=== PATIENT | male | born 1975 | race Caucasian/White ===

== ENCOUNTER → 2021-02-26 10:35 | Outpatient (BNVA) | payer BC, SELFPAY | PROVIDERS: PCP Family Medicine Adult Medicine; Visit Provider Family Medicine Adult Medicine | DX: Z00.00 Encounter for general adult medical examination without abnormal findings (principal) | CPT/HCPCS: 80053; 83036; 85025; G0103 ==

== ENCOUNTER → 2021-04-18 16:53 | Outpatient (BNVA) | payer BC, SELFPAY | PROVIDERS: PCP Family Medicine Adult Medicine; Visit Provider Surgery | DX: Z01.812 Encounter for preprocedural laboratory examination (principal); Z20.822 Contact with and (suspected) exposure to COVID-19 | CPT/HCPCS: 87635 ==

== ENCOUNTER 2021-04-25 06:46 | Day surgery (SDC) | payer BC, SELFPAY ==
[2021-04-23 09:52] VITALS: BMI 25.8
--- NOTE | 2021-04-25 06:59 | P.HP_ITS ---
Same Day Surgery H&P Indication for Procedure/HPI DATE OF PROCEDURE: April 25, 2021 CHIEF COMPLAINT/INDICATIONFOR SURGICAL PROCEDURE: Screening colonoscopy PREOP DIAGNOSIS: Screening colonoscopy PLANNED PROCEDRUE: Operation Date: 04/25/21 08:00 Proposed Procedures p Colonoscopy 78436 Z12.11(Not Applicable) - Eulalio Aldana MD 03/05/2021 This is a pleasant 45 years old gentleman presents to my practice with referral for screening colonoscopy. Patient never had one before, he denies any history of colon cancer or bleeding per rectum or change in bowel habits. Interim history 04/25/2021 Patient comes today for screening colonoscopy ROS All systems have been reviewed negative except as per the above or per problem list Medications/Allergies* Home Medications Medication Instructions Recorded Confirmed Type No Known Home Medications 02/26/21 04/23/21 History Allergies/Adverse Reactions Allergy/AdvReac Type Severity Reaction Status Date / Time No Known Allergies Allergy Verified 04/25/21 07:25 Pertinent History/Comorbid Conditions* Medical History (Updated 03/06/21 @ 06:28 by Eulalio Aldana MD) Broken arm Encounter for wellness examination in adult Sacroiliac inflammation Family History (Updated 12/28/20 @ 11:08 by Lidia Coreas) Father Cancer Father, Onset Age: 69 Lung cancer that went Brain Social History Alcohol intake: current Alcohol intake frequency: holidays/special occasions only Adopted: No Caregiver/support person: No Lives independently: Yes Household members: spouse and children Housing: House Marital status: Number of children: 4 Highest education level completed: Master's Degree service: No Current occupational status: employed Current occupation: [employer] Sexually active: Yes Current gender identity: Male Pertinent Exam Findings alert, oriented x 3, regular rate & rhythm and procedure specific exam findings (Abdominal examination nontender nondistended soft) Recommendations Surgery/Procedure today (Screening colonoscopy) Other Plans: Plan of care; After thorough history and physical examination and reviewing the chart, plan to perform screening colonoscopy. I discussed with the patient in details the risks,benefits,alternatives and indications.The risk of aspiration, bleeding, soft tissue injury, perforation of the colon and other potential concomitant complications were explained to the patient in details,also the potential need for Laproscoy/Laparotomy to repair any related complications including but not limited to colectomy and or Closotomy.The patient understood this well and did agree to proceed. Rationale was carefully and clearly discussed with the patient.Appropriate informed consent have been reviewed and signed All questions have been answered and all concerns have been addressed to patient's satisfaction. Verbal and written Instructions were given to the patient for colonoscopy prep Coding Level of Care Code Acute Decision Analyst for Mauri Newton
[2021-04-25 07:10] VITALS: BP 137/95; PULSE 92; RESP 16; TEMP 36.8; O2SAT 96
--- NOTE | 2021-04-25 07:13 | ANES.PREANE2 ---
Pre-Anesthetic Assessment Pre-Anesthetic Assessment: Height/Weight: Height 1.78 m Weight 81.647 kg Preop Diagnosis: Screening colonoscopy Proposed Procedure: Operation Date: 04/25/21 08:00 Proposed Procedures p Colonoscopy 06312 Z12.11(Not Applicable) - Eulalio Aldana MD Was Beta Franklin taken within 24 hours: N/A Was Clonidine taken within 24 hours: N/A Social: Social History: No alcohol and No tobacco Exam: Pre-Anes Outpt Exam: alert, oriented x 3, clear to auscultation bilaterally and regular rate & rhythm Airway: Submandibular: WNL Cervical ROM: WNL MP: 2 Dentition: Full History/ROS: No significant history except as noted Anesthetic Plan: ASA status: 1 Anesthesia: MAC Risk of > 500 ml blood loss (7ml/kg in children): No PFSH Anesthesia PFSH: Medical History Broken arm Encounter for wellness examination in adult Sacroiliac inflammation Family History Father Cancer, Onset Age: 69 Lung cancer that went Brain Social History Alcohol intake: current Alcohol intake frequency: holidays/special occasions only Adopted: No Caregiver/support person: No Lives independently: Yes Household members: spouse and children Housing: House Marital status: Number of children: 4 Highest education level completed: Master's Degree service: No Current occupational status: employed Current occupation: [employer] Sexually active: Yes Current gender identity: Male Data Anesthesia Cardiac Studies: No Data to Display
[2021-04-25] MEDS: sodium chloride 0.9% 1,000 ML 30 ML IV (07:21)
[2021-04-25 08:20] VITALS: BP 116/78; PULSE 79; RESP 16; TEMP 36.3; O2SAT 96
[2021-04-25 08:32] VITALS: BP 129/84; PULSE 81; RESP 18; O2SAT 99
--- NOTE | 2021-04-25 14:58 | ANE.PACU2 ---
Inpatient post-anesthesia follow up: Airway intact: Yes Vital signs: Temperature 97.4 F Pulse Rate 81 Respiratory Rate 18 Blood Pressure 129/84 Pulse Oximetry 99 Oxygen Delivery Me thod Room Air Oxygen Flow Rate Fraction of Inspir ed Oxygen Hydration adequate: Yes Nausea and vomiting: No Pain level: 1 Mental status: Baseline
== END 2021-04-25 08:40 | disposition home or self-care (01) ==
PROVIDERS: PCP Family Medicine Adult Medicine; Visit Provider Surgery
PROC: 0DJD8ZZ Inspection of Lower Intestinal Tract, Via Natural or Artificial Opening Endoscopic (ICD-10-PCS; CPT 45378; principal; 2021-04-25 08:00)
DX: Z12.11 Encounter for screening for malignant neoplasm of colon (principal); K63.5 Polyp of colon; K57.30 Diverticulosis of large intestine without perforation or abscess without bleeding
CPT/HCPCS: 45385; 88305; 96360; J2370; J2704; J7030

== ENCOUNTER → 2022-02-26 11:38 | Outpatient (BNVA) | payer BC, SELFPAY | PROVIDERS: PCP Family Medicine Adult Medicine; Visit Provider Family Medicine Adult Medicine | DX: Z00.00 Encounter for general adult medical examination without abnormal findings (principal); G56.02 Carpal tunnel syndrome, left upper limb; M46.1 Sacroiliitis, not elsewhere classified; K57.90 Diverticulosis of intestine, part unspecified, without perforation or abscess without bleeding; M67.442 Ganglion, left hand | CPT/HCPCS: 80053; 80061; 85025; 85651 ==

== ENCOUNTER → 2022-09-25 08:48 | Outpatient (BNVA) | payer BC, SELFPAY | PROVIDERS: PCP Family Medicine Adult Medicine; Visit Provider Family Medicine Adult Medicine | DX: Z00.00 Encounter for general adult medical examination without abnormal findings (principal); R10.9 Unspecified abdominal pain; K57.90 Diverticulosis of intestine, part unspecified, without perforation or abscess without bleeding; K63.5 Polyp of colon | CPT/HCPCS: 80053; 84443; 85025; G0103 ==

== ENCOUNTER 2022-10-08 06:37 | Outpatient (CLI) | payer BC, SELFPAY ==
--- NOTE | 2022-10-08 07:00 | US_ITS ---
WS: [id number] RIGHT UPPER QUADRANT ULTRASOUND HISTORY: Abdomen pain COMPARISON: None available. Liver: 15.0 cm in length. Mild hepatic steatosis. No mass. Normal size. Portal Vein: Normal hepatopetal flow with monophasic waveform. Gallbladder: Normally distended gallbladder with no stones or wall thickening. CBD: 0.3 cm Pancreas: Normal size and echogenicity. Right kidney: 11.0 cm in length. Normal size and echogenicity. No hydronephrosis or mass. Aorta and IVC: Unremarkable abdominal aorta and IVC. No ascites. US/US gall bladder 13563 IMPRESSION: 1. Very mild coarse echotexture within the liver is probably hepatic steatosis . 2. Otherwise normal RIGHT upper quadrant ultrasound.
== END 2022-10-08 06:38 | disposition home or self-care (01) ==
PROVIDERS: PCP Family Medicine Adult Medicine; Visit Provider Family Medicine Adult Medicine
DX: R10.9 Unspecified abdominal pain (principal)
CPT/HCPCS: 76705

== ENCOUNTER 2022-12-16 19:28 | Emergency (ER) | payer BC, SELFPAY ==
[2022-12-16 19:41] VITALS: BP 164/92; PULSE 88; RESP 16; TEMP 36.4; O2SAT 99; BMI 28.7
--- NOTE | 2022-12-16 19:52 | CTR_ITS ---
PROCEDURE INFORMATION: Exam: CT Head Without Contrast Exam date and time: 12/16/2022 8:03 PM Age: 47 years old Clinical indication: Stroke-like symptoms; Dizziness/giddiness and vomiting; Additional info: Symptoms of acute stroke TECHNIQUE: Imaging protocol: Computed tomography of the head without contrast. Radiation optimization: All CT scans at this facility use at least one of these dose optimization techniques: automated exposure control; mA and/or kV adjustment per patient size (includes targeted exams where dose is matched to clinical indication); or iterative reconstruction. Other technique: STROKE PROTOCOL was implemented. REPORTING DATA: Count of CT and Cardiac NM exams in prior 12 months: This patient has received 0 known CTs and 0 known cardiac nuclear medicine studies in the 12 months prior to the current study. COMPARISON: No relevant prior studies available. RADIATION DOSE METRICS: Total DLP (mGy-cm): 1143.9 FINDINGS: Brain: No acute infarct. No hemorrhage. Unremarkable white matter for age. No mass effect. Cerebral ventricles: No ventriculomegaly. Paranasal sinuses: No significant inflammation. No fluid levels. Mastoid air cells: Visualized mastoid air cells are well aerated. Bones/joints: Unremarkable. No acute fracture. Soft tissues: Unremarkable. CT/CT head thrombolytic [id number] IMPRESSION: No acute intracranial abnormality. ASSESSMENT: ASPECTS ([place] Stroke Program Early CT Score) is 10.
--- NOTE | 2022-12-16 19:52 | XRR_ITS ---
PROCEDURE INFORMATION: Exam: XR Chest Exam date and time: 12/16/2022 8:00 PM Age: 47 years old Clinical indication: Other: Dizzy TECHNIQUE: Imaging protocol: Radiologic exam of the chest. Views: 1 view. COMPARISON: No relevant prior studies available. FINDINGS: Lungs: Unremarkable. No consolidation. Pleural spaces: Unremarkable. No pleural effusion. No pneumothorax. Heart/Mediastinum: Unremarkable. No cardiomegaly. Bones/joints: Unremarkable. XR/XR chest 1V portable [id number] IMPRESSION: No acute findings.
[2022-12-16 20:03] LABS: Basophils # 0.1 10^3/uL (0.0-0.1); Basophils % 0.8 %; Eosinophils # 0.4 10^3/uL (0.0-0.8); Eosinophils % 3.5 %; Hematocrit 43.4 % (42.0-52.0); Hemoglobin 14.8 g/dL (11.7-16.6); Lymphocytes # 5.5 10^3/uL (0.8-4.8); Lymphocytes % 46.2 %; Mean Corpuscular HGB Conc 34.1 g/dL (30.0-36.0); Mean Corpuscular Hemoglobin 31.2 pg (28.0-34.0); Mean Corpuscular Volume 91.6 fl (80-94); Mean Platelet Volume 9.6 fL (7.4-10.4); Monocytes # 0.8 10^3/uL (0.2-0.9); Monocytes % 6.4 %; Neutrophils # 5.04 10^3/uL (1.8-7.7); Neutrophils % 42.6 %; Nucleated Red Blood Cells % 0 %; Platelet Count 389 10^3/cmm (130-400); Red Blood Count 4.74 10^6/uL (4.1-5.3); Red Cell Distribution Width 11.7 % (12.1-15.1); White Blood Count 11.9 10^3/uL (4.0-10.0)
[2022-12-16 20:04] LABS: Glucose Point of Care 155 mg/dL (70-110)
[2022-12-16] MEDS: ondansetron 2 mg/ML SDV 2 mL 4 MG IVP (20:13)
[2022-12-16 20:14] LABS: INR 1.02 (0.8-1.2)
[2022-12-16 20:15] LABS: Partial Thromboplastin Time 22.9 SECONDS (23.9-36.7)
--- NOTE | 2022-12-16 20:15 | ECG_ITS ---
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 Measurements Intervals [place] Rate: 66 P: 46 NV: 150 QRS: 44 QRSD: 93 T: 47 QT: 430 QTc: 453 Interpretive Statements SINUS RHYTHM POSSIBLE RIGHT VENTRICULAR CONDUCTION DELAY [RSR (QR) IN V1/V2] No previous ECG available for comparison Electronically Signed On 12-16-2022 20:59:10 CDT by Tiffany Bass M.D. [id number]
[2022-12-16] MEDS: sodium chloride 0.9% 1,000 ML 999 ML IV (20:16)
[2022-12-16] MEDS: meclizine 25 mg tablet 50 MG PO (20:16)
[2022-12-16 20:32] LABS: Alanine Aminotransferase 22 U/L (0-41); Albumin Level 4.3 g/dL (3.5-5.2); Alkaline Phosphatase 76 U/L (40-130); Anion Gap 17.4 (5-19); Aspartate Amino Transferase 18 U/L (0-40); Blood Urea Nitrogen 12 mg/dL (6-20); Calcium 8.7 mg/dL (8.5-10.5); Carbon Dioxide 22 mmol/L (22-29); Chloride 99 mmol/L (98-107); Globulin 3.2 g/dL (1.3-4.6); Glomerular Filtration Rate 80.1 mL/min (90-130); Glucose 162 mg/dL (65-115); Osmolality Calculated 283 mOsm/kg (285-295); Potassium 3.4 mmol/L (3.5-5.1); Sodium 135 mmol/L (136-145); Total Bilirubin 0.4 mg/dL (0.15-1.2); Total Protein 7.5 g/dL (6.6-8.7)
[2022-12-16 20:33] VITALS: BP 164/104; PULSE 79; RESP 16; O2SAT 100
[2022-12-16 20:34] LABS: Alcohol Level < 10 mg/dL (0-10)
--- NOTE | 2022-12-16 20:37 | CTR_ITS ---
PROCEDURE INFORMATION: Exam: CTA Head With Contrast, Arteriography Exam date and time: 12/16/2022 8:45 PM Age: 47 years old Clinical indication: Stroke-like symptoms; Dizziness/giddiness and vomiting; Additional info: Dizzy TECHNIQUE: Imaging protocol: Computed tomographic angiography of the head with contrast. Exam focused on the arteries. 3D rendering (Not supervised by radiologist): MIP and/or 3D reconstructed images were created by the technologist. Radiation optimization: All CT scans at this facility use at least one of these dose optimization techniques: automated exposure control; mA and/or kV adjustment per patient size (includes targeted exams where dose is matched to clinical indication); or iterative reconstruction. Contrast material: OMNI 350; Contrast volume: 100 ml; Contrast route: INTRAVENOUS (IV); REPORTING DATA: Count of CT and Cardiac NM exams in prior 12 months: This patient has received 0 known CTs and 0 known cardiac nuclear medicine studies in the 12 months prior to the current study. COMPARISON: CT head thrombolytic [id number] 12/16/2022 8:03 PM RADIATION DOSE METRICS: Total DLP (mGy-cm): 452.6 FINDINGS: ANTERIOR CIRCULATION: Right internal carotid artery: Intracranial segment is patent with no significant stenosis. No aneurysm. Right middle cerebral artery: No occlusion or significant stenosis. No aneurysm. Right anterior cerebral artery: No occlusion or significant stenosis. No aneurysm. Left internal carotid artery: Intracranial segment is patent with no significant stenosis. No aneurysm. Left middle cerebral artery: No occlusion or significant stenosis. No aneurysm. Left anterior cerebral artery: No occlusion or significant stenosis. No aneurysm. POSTERIOR CIRCULATION: Right vertebral artery: No occlusion or significant stenosis. No aneurysm. Left vertebral artery: No occlusion or significant stenosis. No aneurysm. Basilar artery: No occlusion or significant stenosis. No aneurysm. Right posterior cerebral artery: No occlusion or significant stenosis. No aneurysm. Left posterior cerebral artery: No occlusion or significant stenosis. No aneurysm. Brain: No definite mass, mass effect, or midline shift. Cerebral ventricles: No ventriculomegaly. Bones/joints: Unremarkable. No acute fracture. Soft tissues: Unremarkable. PROCEDURE INFORMATION: Exam: CTA Neck With Contrast Exam date and time: 12/16/2022 8:45 PM Age: 47 years old Clinical indication: Stroke-like symptoms; Dizziness/giddiness and vomiting; Additional info: Dizzy TECHNIQUE: Imaging protocol: Computed tomographic angiography of the neck with contrast. 3D rendering (Not supervised by radiologist): MIP and/or 3D reconstructed images were created by the technologist. Radiation optimization: All CT scans at this facility use at least one of these dose optimization techniques: automated exposure control; mA and/or kV adjustment per patient size (includes targeted exams where dose is matched to clinical indication); or iterative reconstruction. Contrast material: OMNI 350; Contrast volume: 100 ml; Contrast route: INTRAVENOUS (IV); REPORTING DATA: Count of CT and Cardiac NM exams in prior 12 months: This patient has received 0 known CTs and 0 known cardiac nuclear medicine studies in the 12 months prior to the current study. COMPARISON: CT head thrombolytic [id number] 12/16/2022 8:03 PM RADIATION DOSE METRICS: Total DLP (mGy-cm): 452.6 FINDINGS: Right common carotid artery: No stenosis. No dissection or occlusion. Right internal carotid artery: No stenosis of the extracranial segment. No dissection or occlusion. Right external carotid artery: No occlusion or stenosis of the origin. Left common carotid artery: No stenosis. No dissection or occlusion. Left internal carotid artery: No stenosis of the extracranial segment. No dissection or occlusion. Left external carotid artery: No occlusion or stenosis of the origin. Right vertebral artery: No stenosis. No dissection or occlusion. Left vertebral artery: No stenosis. No dissection or occlusion. Soft tissues: Normal. No significant soft tissue swelling. Bones/joints: No acute fracture. CT/CT angio headneck* [id number] IMPRESSION: No large vessel stenosis or occlusion. IMPRESSION: No stenosis or occlusion. REFERENCES: NASCET CRITERIA. The degree of stenosis in the cervical segment of the internal carotid artery is based on NASCET criteria. Normal is no stenosis. Mild is less than 50% stenosis. Moderate is 50-69% stenosis. Severe is 70% to 99% stenosis. Total occlusion is no detectable patent lumen.
--- NOTE | 2022-12-16 20:45 | PM.CONSULT ---
Providers/Reason For Consult Consulting Physician/Specialty*: Artem Hu MD Neurology and Epilepsy Reason for Consult*: Code stroke emergency room bed #13 Primary Care Provider: Al Tavarez MD History of Present Illness History of Present Illness Al Galarza is a 47 year old male who was at home with his . The patient had finished eating dinner around 7 AM on 12/16/2022 and was at his computer completing applications. Approximately 30 minutes prior to presenting to the [facility] emergency room, the patient stated that he turned his head to speak with his and when he turned his head back to look at his computer he experienced acute onset of severe objective vertigo where the patient stated everything was spinning around. The patient's gave him a banana to eat in case the patient was experiencing a low blood sugar and the patient experienced nausea and vomiting. According to the patient's the patient blood pressure was elevated with systolic blood in the mid to high 140s. The patient also stated that he was experiencing some numbness in the fingers of his right hand but the numbness in his fingers resolved. Code stroke was initiated at 7:52 PM on 12/16/2022. Noncontrast head CT was obtained and was reported to be negative. Patient was given Antivert and Zofran for nausea and vomiting. During the patient's neurological assessment the patient reported improvement in his nausea and denied vertigo while sitting on the stretcher with his head elevated. He did report some right temporal headache type pain. Vital signs reveal elevated blood pressure 157/104 with a heart rate of 67 O2 saturation 99% on room air. NIH score =0. I recommended that the patient undergo CT angiogram of his head and neck to rule out posterior circulation stenosis/thrombus. The patient's wanted the patient undergo cardiac enzymes although the patient denies chest pain at this time. The patient's concerned was related to the attending emergency room physician. Past medical history: Questionable gallstone in August 2022 Drug allergies: None Current Home Medications: None Habits: None Family history: Negative for strokes Review of Systems General: Reports: 10 or more systems reviewed and unremarkable except in HPI and below Medications/Allergies Home Medications Medication Instructions Recorded Confirmed Last Taken Type naproxen 500 mg tablet 500 mg PO BID PRN pain #60 tabs 02/26/22 09/25/22 Unknown Rx Allergies Allergy/AdvReac Type Severity Reaction Status Date / Time No Known Allergies Allergy Verified 12/16/22 19:41 Current Medications Generic Name Dose Route Start Last Admin Trade Name Freq PRN Reason Stop Dose Admin Sodium Chloride 1,000 mls @ 999 mls/hr 12/16/22 19:52 12/16/22 20:16 Sodium Chloride 0.9% IV 12/16/22 20:52 999 mls/hr .Q1H1M ONE Administration PFSH Acute PFSH: Medical History (Updated 12/16/22 @ 21:05 by Artem Hu MD) Abdominal pain in male Broken arm Carpal tunnel syndrome of left wrist Encounter for wellness examination in adult Ganglion cyst of tendon sheath of left hand Sacroiliac inflammation Family History Father Cancer, Onset Age: 69 Lung cancer that went Brain Social History (Updated 02/26/22 @ 11:03 by Nicole Farnsworth LPN) Smoking and tobacco status: never smoked Alcohol intake: current Alcohol intake frequency: holidays/special occasions only Substance/Drug Use: never Adopted: No Caregiver/support person: No Lives independently: Yes Household members: spouse and children Housing: House Marital status: Number of children: 4 Highest education level completed: Master's Degree service: No Current occupational status: employed Current occupation: [employer] Sexually active: Yes Current gender identity: Male Vitals/I&O/Wt Last Vital Signs Temp 97.6 F 12/16/22 19:41 Pulse 79 12/16/22 20:33 Resp 16 12/16/22 20:33 BP 164/104 12/16/22 20:33 Pulse Ox 100 12/16/22 20:33 O2 Del Method Room Air 12/16/22 19:41 Weight last 48 hrs Weight 200 lb Physical Exam Narrative: NIH score = 0 Blood pressure 157/104 heart rate 67 O2 saturation 99% on room air The patient is alert and oriented x3. Speech fluent. There was no dysarthria head normocephalic. Neck supple. Cranial nerves II through XII intact. Pupils 4 mm. Pupils equal round and reactive to light and accommodation. Extraocular movements intact. There was brief episodes of horizontal nystagmus on left lateral gaze which extinguish with repeat assessment of extraocular movements. Visual keyes full via confrontation. Motor testing with the patient on the gurney was 5/5 bilaterally. There was no drift. [id number] was within normal limits without signs of ataxia. Rapid alternating movements of the upper extremities was within normal limits. [id number] maneuver revealed no ataxia. Deep tendon reflexes symmetrical, plantar responses flexor bilaterally. There was no clonus. Sensory examination was intact to touch, pinprick. There was no extinction on double sensory stimulation. Patient answers both questions correctly and follow commands. Throat clear. Lungs clear heart regular rhythm and rate extremities were negative for clubbing or cyanosis or edema. Data 12/16/22 19:56 12/16/22 19:56 A&P Assessment and plan (1) Acute posterior circulation transient ischemic attack: Assessment: 1. 47-year-old male who presented to [facility] emergency department after experiencing acute onset of objective vertigo associated with elevated blood pressure and nausea and vomiting while sitting at his computer, assess for posterior circulation TIA Note: NIH score =0 Plan: 1. Recommend CT angiogram of the head and neck to assess for posterior circulation stenosis and thrombus 2. Agree with current treatment for nausea and vomiting 3. If CT angiogram is unrevealing, recommend admit to observation 4. Recommend starting aspirin 325 mg p.o. every morning with food first dose tonight 5. Recommend starting lipid lowering agent per stroke protocol 6. Recommend obtaining head MRI in a.m. to further assess for posterior circulation stroke (2) Objective vertigo: (3) Elevated blood pressure reading: Consult Attestations Medical Necessity Statement: The patient was evaluated by neurology and emergency department room 13 to assess for posterior circulation stroke Coding Level of Care Code 87688 Diagnoses Acute posterior circulation transient ischemic attack G45.8 Objective vertigo R42 Elevated blood pressure reading R03.0 Time Spent (min) 30
[2022-12-16] MEDS: iohexol 350 mg/mL 500 mL Btl (per mL) IV (20:53)
--- NOTE | 2022-12-16 21:01 | ECG_ITS ---
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 Measurements Intervals [place] Rate: 84 P: 57 [place]: 148 QRS: 46 QRSD: 99 T: 48 QT: 372 QTc: 441 Interpretive Statements SINUS RHYTHM NONSPECIFIC T-WAVE ABNORMALITY Compared to ECG 12/16/2022 20:15:06 T-wave abnormality now present Electronically Signed On 12-16-2022 21:04:32 CDT by Tiffany Bass M.D. [id number]
[2022-12-16 21:18] LABS: Troponin(5th) Baseline 6 ng/L (0-15)
[2022-12-16] MEDS: aspirin 81 mg Chew Tablet 324 MG PO (21:38)
[2022-12-16 21:44] LABS: Add Urine Microscopic? NO; Charge for UA Resulting for Rev
[2022-12-16 21:48] LABS: Bilirubin Urine Neg (Negative); Blood Urine Neg (Negative); Glucose Urine UA Norm (Normal); Ketones Urine Negative (Negative); Leukocyte Esterase Urine Negative (Negative); Nitrate Urine Negative (Negative); Protein Urine Neg (Negative); Urine Appearance Clear (CLEAR); Urine Color Yellow (Yellow); Urobilinogen Urine Neg (Negative); pH Urine 5 (5-7)
[2022-12-16 21:55] LABS: Amphetamines Screen Urine Negative (Negative); Barbiturates Screen Urine Negative (Negative); Benzodiazepines Screen Urine Negative (Negative); Cocaine Screen Urine Negative (Negative); Opiate Screen Urine Negative (Negative); PCP Screen Urine Negative (Negative); THC Screen Urine Negative (Negative)
--- NOTE | 2022-12-16 21:59 | W.ED.NAVMDI ---
HPI - Nausea/Vomiting/Diarrhea General: Chief complaint: Nausea/Vomiting/Diarrhea Stated complaint: Possible Stroke Time Seen by Provider: 12/16/22 19:46 Source: patient Mode of arrival: ambulatory Limitations: no limitations History of Present Illness: 47-year-old male states that 30 minutes before arrival he started getting severe dizziness while sitting. He states that the room was spinning he got nauseous and vomited he states that upon standing the symptoms get much worse he had a hard time walking due to the dizziness. States now it is improved if he lays still but is worse if he moves his head quickly. No history of vertigo in the past. Denies any pain anywhere Associated nausea: Yes Associated symtoms: Reports nausea; Denies chest pain or headache(s) Review of Systems Const: Denies: fever(s), chills, body aches or change in appetite Eyes: Denies: blurry vision or eye discomfort ENMT: Denies: throat pain or dental pain Card: Denies: chest pain Resp: Denies: dyspnea GI: Reports: nausea and vomiting; Denies: abdominal pain or diarrhea Musc: Denies: neck pain or back pain Skin/Breast: Denies: rash Neuro: Reports: vertigo; Denies: headache(s) PFSH ED PFSH: Medical History (Updated 12/16/22 @ 21:59 by Chaya Crouch MD) Abdominal pain in male Broken arm Carpal tunnel syndrome of left wrist Encounter for wellness examination in adult Ganglion cyst of tendon sheath of left hand Sacroiliac inflammation Family History Father Cancer, Onset Age: 69 Lung cancer that went Brain Social History (Updated 02/26/22 @ 11:03 by Nicole Fanrsworth LPN) Smoking and tobacco status: never smoked Alcohol intake: current Alcohol intake frequency: holidays/special occasions only Substance/Drug Use: never Adopted: No Caregiver/support person: No Lives independently: Yes Household members: spouse and children Housing: House Marital status: Number of children: 4 Highest education level completed: Master's Degree service: No Current occupational status: employed Current occupation: [employer] Sexually active: Yes Current gender identity: Male Physical Exam Const: COMMON NORMALS: no acute distress, patient oriented x3, healthy appearing and alert ORIENTATION/CONSCIOUSNESS: Yes oriented to person and Yes oriented to place HENMT: COMMON NORMALS: normocephalic and atraumatic HEAD & SCALP: normocephalic and atraumatic Eye: COMMON NORMALS: Equal, round and reactive pupils present and EOMs intact bilaterally PUPIL: Yes Equal, round and reactive pupils present OTHER: No nystagmus at this time Neck/C-Spine: COMMON NORMALS: full ROM and supple Chest: COMMONS NORMALS: normal inspection of the chest and normal palpation of entire chest wall Resp: COMMON NORMALS: normal respiratory effort, No retractions, No use of accessory muscles and clear to auscultation bilaterally AUSCULTATION: clear to auscultation bilaterally Cardio: COMMON NORMALS: regular rate, regular rhythm and No murmurs present (Cardio) RATE: regular rate RHYTHM: regular rhythm GI: COMMON NORMALS: Normal to inspection, nondistended, normoactive bowel sounds present, Soft to palpation, non-tender and no masses PALPATION: Yes Soft to palpation Extremity: COMMON NORMALS: normal to inspection and full ROM Neuro: COMMON NORMALS: patient oriented x3, moves all extremities and no focal motor deficits SENSORIUM/ORIENTATION: Yes alert, Yes oriented to person and Yes oriented to place CRANIAL NERVES: Yes CN normal except as noted SPEECH: speech normal GAIT: Yes Normal gait present Psych: COMMON NORMALS: mental status grossly normal, Normal thought process present and cooperative THOUGHT PROCESS: Normal thought process present Skin: COMMON NORMALS: no rashes or lesions noted and no wounds GENERAL SKIN EXAM: no rashes or lesions noted Course Vital Signs: Vital signs: Vital Signs Temperature 97.6 F 12/16/22 19:41 Pulse Rate 79 12/16/22 20:33 Respiratory Rate 16 12/16/22 20:33 Blood Pressure 164/104 12/16/22 20:33 Pulse Oximetry 100 12/16/22 20:33 Oxygen Delivery Me thod Room Air 12/16/22 19:41 MDM - Nausea/Vomiting/Diarrhea Medical Decision Making Patient presents here with vertigo is likely peripheral in nature symptoms of complete resolved here after Antivert he is able to ambulate without any difficulty has had no dizziness CT head CTA is normal I did offer him admission he states he feels much improved and would like to go home we will prescribe him Antivert for home he is to follow-up with PCP and return if worsening. Medical Records I reviewed the patient's medical records. Lab Data I reviewed the patient's lab results. 12/16/22 19:56 12/16/22 19:56 Radiology Impressions Chest X-Ray 12/16/22 19:52 IMPRESSION: No acute findings. Head CT 12/16/22 19:52 IMPRESSION: No acute intracranial abnormality. ASSESSMENT: ASPECTS ([place] Stroke Program Early CT Score) is 10. Head/Neck CTA 12/16/22 20:37 IMPRESSION: No large vessel stenosis or occlusion. IMPRESSION: No stenosis or occlusion. REFERENCES: NASCET CRITERIA. The degree of stenosis in the cervical segment of the internal carotid artery is based on NASCET criteria. Normal is no stenosis. Mild is less than 50% stenosis. Moderate is 50-69% stenosis. Severe is 70% to 99% stenosis. Total occlusion is no detectable patent lumen. Laboratory Results WBC 11.9 10^3/uL (4.0-10.0) H 12/16/22 19:56 RBC 4.74 10^6/uL (4.1-5.3) 12/16/22 19:56 Hgb 14.8 g/dL (11.7-16.6) 12/16/22 19:56 Hct 43.4 % (42.0-52.0) 12/16/22 19:56 MCV 91.6 fl (80-94) 12/16/22 19:56 MCH 31.2 pg (28.0-34.0) 12/16/22 19:56 MCHC 34.1 g/dL (30.0-36.0) 12/16/22 19:56 RDW 11.7 % (12.1-15.1) L 12/16/22 19:56 Plt Count 389 10^3/cmm (130-400) 12/16/22 19:56 MPV 9.6 fL (7.4-10.4) 12/16/22 19:56 Neut % (Auto) 42.6 % 12/16/22 19:56 Lymph % (Auto) 46.2 % 12/16/22 19:56 [place] % (Auto) 6.4 % 12/16/22 19:56 Eos % (Auto) 3.5 % 12/16/22 19:56 Baso % (Auto) 0.8 % 12/16/22 19:56 Neut # (Auto) 5.04 10^3/uL (1.8-7.7) 12/16/22 19:56 Lymph # (Auto) 5.5 10^3/uL (0.8-4.8) H 12/16/22 19:56 [place] # (Auto) 0.8 10^3/uL (0.2-0.9) 12/16/22 19:56 Eos # (Auto) 0.4 10^3/uL (0.0-0.8) 12/16/22 19:56 Baso # (Auto) 0.1 10^3/uL (0.0-0.1) 12/16/22 19:56 Nucleated RBC % (auto) 0 % 12/16/22 19:56 Nucleated RBCs # 0.0 /100WBC 12/16/22 19:56 PT 13.70 SECONDS (12.1-14.9) 12/16/22 19:56 INR 1.02 (0.8-1.2) 12/16/22 19:56 APTT 22.9 SECONDS (23.9-36.7) L 12/16/22 19:56 Sodium 135 mmol/L (136-145) L 12/16/22 19:56 Potassium 3.4 mmol/L (3.5-5.1) L 12/16/22 19:56 Chloride 99 mmol/L (98-107) 12/16/22 19:56 Carbon Dioxide 22 mmol/L (22-29) 12/16/22 19:56 Anion Gap 17.4 (5-19) 12/16/22 19:56 BUN 12 mg/dL (6-20) 12/16/22 19:56 Creatinine 1.0 mg/dL (0.7-1.2) 12/16/22 19:56 GFR Calculation 80.1 mL/min (90-130) L 12/16/22 19:56 Glucose 162 mg/dL (65-115) H 12/16/22 19:56 POC Glucose 155 mg/dL (70-110) H 12/16/22 19:56 Calculated Osmolality 283 mOsm/kg (285-295) L 12/16/22 19:56 Calcium 8.7 mg/dL (8.5-10.5) 12/16/22 19:56 Total Bilirubin 0.4 mg/dL (0.15-1.2) 12/16/22 19:56 AST 18 U/L (0-40) 12/16/22 19:56 ALT 22 U/L (0-41) 12/16/22 19:56 Alkaline Phosphatase 76 U/L (40-130) 12/16/22 19:56 Troponin T Baseline 6 ng/L (0-15) 12/16/22 19:56 Troponin T 120 Minute 8.05 ng/L (0-15) 12/16/22 21:38 Total Protein 7.5 g/dL (6.6-8.7) 12/16/22 19:56 Albumin 4.3 g/dL (3.5-5.2) 12/16/22 19:56 Globulin 3.2 g/dL (1.3-4.6) 12/16/22 19:56 Urine Color Yellow (Yellow) 12/16/22 21:40 Urine Appearance Clear (CLEAR) 12/16/22 21:40 Urine pH 5 (5-7) 12/16/22 21:40 Ur Specific [place] 1.020 (1.005-1.030) 12/16/22 21:40 Urine Protein Neg (Negative) 12/16/22 21:40 Urine Glucose (UA) Norm (Normal) 12/16/22 21:40 Urine Ketones Negative (Negative) 12/16/22 21:40 Urine Blood Neg (Negative) 12/16/22 21:40 Urine Nitrate Negative (Negative) 12/16/22 21:40 Urine Bilirubin Neg (Negative) 12/16/22 21:40 Urine Urobilinogen Neg mg/dL (Negative) 12/16/22 21:40 Ur Leukocyte Esterase Negative (Negative) 12/16/22 21:40 Urine Opiates Screen Negative ng/mL (Negative) 12/16/22 21:40 Ur Barbiturates Screen Negative ng/mL (Negative) 12/16/22 21:40 Ur Phencyclidine Scrn Negative ng/mL (Negative) 12/16/22 21:40 Ur Amphetamines Screen Negative ng/mL (Negative) 12/16/22 21:40 U Benzodiazepines Scrn Negative ng/mL (Negative) 12/16/22 21:40 Urine Cocaine Screen Negative ng/mL (Negative) 12/16/22 21:40 U Marijuana (THC) Screen Negative ng/mL (Negative) 12/16/22 21:40 Ethyl Alcohol < 10 mg/dL (0-10) 12/16/22 19:56 Discharge Plan Discharge Patient Disposition: Home Clinical Impression: Vertigo Condition: Stable Prescriptions: New Antivert 50 mg tablet 50 mg PO BID PRN (Reason: dizziness) Qty: 20 0RF No Action naproxen 500 mg tablet 500 mg PO BID PRN (Reason: pain) Qty: 60 1RF Discharge Orders: Discharge ED (Routine); Ordered 12/16/22 Ordered By: Chaya Crouch Referrals: Al Tavarez MD [Primary Care Provider] - 1-3 days Discharge Diet: Advance as tolerated Discharge Activity: Resume usual activity Patient Instructions: Vertigo (ED) Coding Level of Care Code ED [place] Attendant for Mauri Newton NIH stroke score NIHSS Level Of Consciousness - 1a: 0 Level Of Consciousness Questions - 1b: Both Correct Level Of Consciousness Commands - 1c: Both Correct Best Gaze - 2: Normal Visual [place] - 3: No Visual Loss Facial Palsy - 4: Normal Motor Arm Right - 5: No Drift Motor Arm Left - 5: No Drift Motor Leg Right - 6: No Drift Motor Leg Left - 6: No Drift Limb Ataxia - 7: Absent Sensory - 8: Normal Best Language - 9: No Aphasia Dysarthia - 10: Normal Extinction And Inattention - 11: 0 Score Total Score: 0
[2022-12-16 22:04] LABS: Troponin 5 2HR 8.05 ng/L (0-15)
[2022-12-16 22:19] VITALS: BP 141/92; PULSE 79; RESP 16; O2SAT 100
[2022-12-16 22:20] VITALS: BP 141/92; PULSE 79; RESP 16; TEMP 36.4; O2SAT 100
[2022-12-16 22:20] LABS: Troponin 5 2HR Delta 2.05 ABS# (0-10)
== END 2022-12-16 22:20 | disposition home or self-care (01) ==
PROVIDERS: Emergency Provider Emergency Medicine; PCP Family Medicine Adult Medicine
DX: R42 Dizziness and giddiness (principal); R11.0 Nausea
CPT/HCPCS: 36415; 36416; 70450; 70496; 70498; 71045; 80053; 80306; 80307; 81003; 82962; 84484; 85025; 85610; 85730; 93005; 96374; 99285; J2405; J7030; J8597; Q9967

== ENCOUNTER → 2023-07-10 09:40 | Outpatient (BNVA) | payer BC, SELFPAY | PROVIDERS: PCP Family Medicine Adult Medicine; Visit Provider Family Medicine Adult Medicine | DX: R03.0 Elevated blood-pressure reading, without diagnosis of hypertension (principal); R42 Dizziness and giddiness; Z00.00 Encounter for general adult medical examination without abnormal findings | CPT/HCPCS: 80053; 80061; 84443; 85025; G0103 ==

== ENCOUNTER 2024-08-28 18:18 | Observation (INO) | payer BC, SELFPAY ==
[2024-08-28] VITALS (7 sets, daily range): BP systolic 130–148; BP diastolic 86–104; PULSE 67–93; RESP 12–20; TEMP 36.5–36.8; O2SAT 94–98
--- NOTE | 2024-08-28 18:28 | CTR_ITS ---
PROCEDURE INFORMATION: Exam: CT Head Without Contrast Exam date and time: 08/28/2024 6:41 PM Age: 49 years old Clinical indication: Stroke-like symptoms; Speech disturbance; Additional info: Symptoms of acute stroke. Transient 5 minute episode of aphasia TECHNIQUE: Imaging protocol: Computed tomography of the head without contrast. Radiation optimization: All CT scans at this facility use at least one of these dose optimization techniques: automated exposure control; mA and/or kV adjustment per patient size (includes targeted exams where dose is matched to clinical indication); or iterative reconstruction. Other technique: STROKE PROTOCOL was implemented. COMPARISON: CT angio headneck* [id number] 12/16/2022 8:45 PM RADIATION DOSE METRICS: Total DLP (mGy-cm): 1021.78 FINDINGS: Brain: Normal. No hemorrhage. Unremarkable white matter. No mass effect. Cerebral ventricles: No ventriculomegaly. Paranasal sinuses: Visualized sinuses are unremarkable. No fluid levels. Mastoid air cells: Visualized mastoid air cells are well aerated. Bones: Unremarkable. No acute fracture. Soft tissues: Unremarkable. CT/CT head thrombolytic [id number] IMPRESSION: Negative for intracranial hemorrhage. No identified acute infarct. ASSESSMENT: ASPECTS ([place] Stroke Program Early CT Score) is 10.
--- NOTE | 2024-08-28 18:30 | ED_ITS ---
HPI - General Adult 2 General: Chief complaint: General Medical Stated complaint: could not form words for 5 min Time Seen by Provider: 08/28/24 18:28 History of Present Illness: 49-year-old male patient with no prior h istory. He presents with a short time period of expressive aphasia. He says that this started around 15 minutes prior to arrival while looking at his phone. He was aware of his symptoms. This lasted for 5 minutes. Symptoms are now resolved. He has no other symptoms including no visual problems, weakness, numbness, etc. Related Data Home Medications ?Medication ?Instructions ?Recorded ?Confirmed omeprazole 20 mg capsule,delayed 20 mg PO DAILY PRN He artburn 08/28/24 08/28/24 release Previous Rx's ?Medication ?Instructions ?Recorded naproxen 500 mg tablet 500 mg PO BID PRN pain #60 t abs 02/26/22 Allergies Allergy/AdvReac Type Severity Reaction Status Date / Time No Known Allergies Allergy Verified 07/10/23 09:05 [facility] ED 2 PFS: Medical History Elevated blood pressure reading Ganglion cyst of tendon sheath of left hand Carpal tunnel syndrome of left wrist Sacroiliac inflammation Family History Father Cancer, Onset Age: 69 Lung cancer that went Brain Social History Smoking and tobacco/nicotine status: never used tobacco/nicotine Alcohol intake: current Alcohol intake frequency: holidays/special occasions only Substance/Drug Use: never Adopted: No Caregiver/support person: No Lives independently: Yes Household members: spouse and children Housing: House Marital status: Number of children: 4 Highest education level completed: Master's Degree service: No Current occupational status: employed Current occupation: [employer] Sexually active: Yes Current gender identity: Male Physical Exam 2 Const: COMMON NORMALS: no acute distress GENERAL APPEARANCE: cooperative; not ill appearing and not frail appearing HENMT: COMMON NORMALS: normocephalic, atraumatic and Normal external nose present HEAD & SCALP: normocephalic and atraumatic FACE & SINUS: normal facial exam and face symmetric NOSE: Normal external nose present Eye: COMMON NORMALS: Equal, round and reactive pupils present and EOMs intact bilaterally PUPIL: Yes Equal, round and reactive pupils present Neck/C-Spine: GENERAL: Yes trachea midline Chest: CHEST: Yes Symmetrical chest wall rise Resp: COMMON NORMALS: normal respiratory effort, No retractions, No use of accessory muscles and clear to auscultation bilaterally AUSCULTATION: clear to auscultation bilaterally Cardio: COMMON NORMALS: regular rate and regular rhythm RATE: regular rate RHYTHM: regular rhythm GI: COMMON NORMALS: Normal to inspection, nondistended, normoactive bowel sounds present Extremity: COMMON NORMALS: no pedal edema Neuro: DINA COMA SCALE: document GCS findings [place] coma scale eye opening: Spontaneous Dina coma scale verbal response: Orientated Dina coma scale motor response: Obey commands Dina coma scale total score: 15 S ENSORY EXAM: Yes extremities (intact) OTHER: See NIH Psych: COMMON NORMALS: speech normal SPEECH: Yes normal speech Skin: COMMON NORMALS: no rashes or lesions noted GENERAL SKIN EXAM: no rashes or lesions noted Course 2 Vital Signs: Vital signs: Vital Signs Temperature 97.7 F 08/28/24 18:21 Pulse Rate 67 08/28/24 21:43 Respiratory Rate 12 08/28/24 21:43 Blood Pressure 131/86 08/28/24 21:43 Pulse Oximetry 96 08/28/24 21:43 Oxygen Delivery Me thod Room Air 08/28/24 21:49 MDM - General Adult Medical Decision Making 49-year-old male with an episode of expressive aphasia. His NIH is 0 on arrival. He however has experienced blurred vision twice during his ER stay here as well even though his language problems have resolved. Head CT is negative. CBC and BMP are not not remarkable. Ethanol level is 11. Drug screen is negative. This is his second episode of transient neurological symptoms in the past couple of years. Stroke alert was called, due to the acuteness of the onset symptoms. I spoke with neurology. Recommendations are lipid panel, aspirin, statin, and echocardiogram with carotid Doppler if CTA has not completed. Spoke with hospitalist. She recommends CTA which has been done. The patient will be observed, echo in the morning. Lab Data 08/28/24 18:30 08/28/24 18:[address] 08/28/24 18:28 IMPRESSION: Negative for intracranial hemorrhage. No identified acute infarct. ASSESSMENT: ASPECTS ([place] Stroke Program Early CT Score) is 10. ADDENDUM: 08/28/[address] Castaneda at 7:05 p.m. on 08/28/2024 Head/Neck CTA 08/28/24 21:34 IMPRESSION: No large vessel stenosis or occlusion. IMPRESSION: No stenosis or occlusion. REFERENCES: NASCET CRITERIA. The degree of stenosis in the cervical segment of the internal carotid artery is based on NASCET criteria. Normal is no stenosis. Mild is less than 50% stenosis. Moderate is 50-69% stenosis. Severe is 70% to 99% stenosis. Total occlusion is no detectable patent lumen. Laboratory Results WBC 7.41 10^3/uL (3.29-11.43) 08/28/24 18:30 RBC 5.05 10^6/uL (3.85-5.65) 08/28/24 18:30 Hgb 16.00 g/dL (11.27-16.99) 08/28/24 18:30 Hct 46.4 % (37-53) 08/28/24 18:30 MCV 91.9 fl (82-101) 08/28/24 18:30 MCH 31.7 pg (27-33) 08/28/24 18:30 MCHC 34.5 g/dL (30-55) 08/28/24 18:30 RDW 12.1 % (12.1-15.1) 08/28/24 18:30 Plt Count 339 10^3/cmm (157-399) 08/28/24 18:30 MPV 9.6 fL (7.4-10.4) 08/28/24 18:30 Neut % (Auto) 53.7 % 08/28/24 18:30 Lymph % (Auto) 35.5 % 08/28/24 18:30 [place] % (Auto) 6.2 % 08/28/24 18:30 Eos % (Auto) 3.4 % 08/28/24 18:30 Baso % (Auto) 0.8 % 08/28/24 18:30 Neut # (Auto) 3.98 10^3/uL (1.8-7.7) 08/28/24 18:30 Lymph # (Auto) 2.6 10^3/uL (0.8-4.8) 08/28/24 18:30 [place] # (Auto) 0.5 10^3/uL (0.2-0.9) 08/28/24 18:30 Eos # (Auto) 0.3 10^3/uL (0.0-0.8) 08/28/24 18:30 Baso # (Auto) 0.1 10^3/uL (0.0-0.1) 08/28/24 18:30 Nucleated RBC % (auto) 0 % 08/28/24 18: Nucleated RBCs # 0.0 /100WBC 08/28/24 18:30 PT 12.50 SECONDS (12.1-14.9) 08/28/24 18: INR 0.88 (0.8-1.2) 08/28/24 18: APTT 27.3 SECONDS (23.9-36.7) 08/28/24 18:30 Sodium 141 mmol/L (136-145) 08/28/24 18: Potassium 4.8 mmol/L (3.5-5.1) 08/28/24 18: Chloride 105 mmol/L (98-107) 08/28/24 18: Carbon Dioxide 25 mmol/L (22-29) 08/28/24 18: Anion Gap 15.8 (5-19) 08/28/24 18:30 BUN 13 mg/dL (6-20) 08/28/24 18: Creatinine 1.2 mg/dL (0.7-1.2) 08/28/24 18: GFR Calculation 64.4 mL/min (90-130) L 08/28/24 18: Glucose 121 mg/dL (65-115) H 08/28/24 18: Calculated Osmolality 293 mOsm/kg (285-295) 08/28/24 18: Calcium 9.2 mg/dL (8.5-10.5) 08/28/24 18:30 Total Bilirubin 0.4 mg/dL (0.15-1.2) 08/28/24 18:30 AST 20 U/L (0-40) 08/28/24 18: ALT 29 U/L (0-41) 08/28/24 18:30 Alkaline Phosphatase 79 U/L (40-130) 08/28/24 18:30 Total Protein 7.7 g/dL (6.6-8.7) 08/28/24 18: Albumin 4.5 g/dL (3.5-5.2) 08/28/24 18: Globulin 3.2 g/dL (1.3-4.6) 08/28/24 18:30 Triglycerides 221 mg/dL (0-150) H 08/28/24 18:30 Cholesterol 167 mg/dL (0-200) 08/28/24 18:30 LDL Cholesterol, Calc 82 mg/dL (50-129) 08/28/24 18: Total VLDL Cholesterol 44 mg/dL (0-30) H 08/28/24 18:30 HDL Cholesterol 41 mg/dL (60-100) L 08/28/24 18:30 Cholesterol/HDL Ratio 4.07 mg/dL (1.0-5.00) 08/28/24 18:30 Urine Color Yellow (Yellow) 08/28/24 20: Urine Appearance Clear (CLEAR) 08/28/24 20: Urine pH 5 (5-7) 08/28/24 20: Ur Specific [place] 1.025 (1.005-1.030) 08/28/24 20: Urine Protein Neg (Negative) 08/28/24 20: Urine Glucose (UA) Norm (Normal) 08/28/24 20: Urine Ketones Negative (Negative) 08/28/24 20: Urine Blood Neg (Negative) 08/28/24: Urine Nitrate Negative (Negative) 08/28/24 20: Urine Bilirubin Neg (Negative) 08/28/24 20: Urine Urobilinogen Norm mg/dL (Negative) 08/28/24 20: Ur Leukocyte Esterase Negative (Negative) 08/28/24: Amorphous Sediment Not Reportable 08/28/24: Urine Opiates Screen Negative ng/mL (Negative) 08/28/24 20: Ur Barbiturates Screen Negative ng/mL (Negative) 08/28/24 20: Ur Phencyclidine Scrn Negative ng/mL (Negative) 08/28/24 20: Ur Amphetamines Screen Negative ng/mL (Negative) 04/05/25 20:29 U Benzodiazepines Scrn Negative ng/mL (Negative) 08/28/24 20:29 Urine Cocaine Screen Negative ng/mL (Negative) 08/28/24 20:29 U Marijuana (THC) Screen Negative ng/mL (Negative) 08/28/24 20:29 Ethyl Alcohol 11 mg/dL (0-10) H 08/28/24 18:30 All radiology interpretation(s) finalized by discharge Discharge Plan Discharge Patient Disposition: Placed in Observation Admit Provider: Swetha George Clinical Impression: Transient ischemic attack (TIA) Coding Level of Care Code ED Nursing Services Manager for Rachelg Lamar NIH stroke score NIHSS Level Of Consciousness - 1a: 0 Level Of Consciousness Questions - 1b: Both Correct Level Of Consciousness Commands - 1c: Both Correct Best Gaze - 2: Normal Visual [place] - 3: No Visual Loss Facial Palsy - 4: Normal Motor Arm Right - 5: No Drift Motor Arm Left - 5: No Drift Motor Leg Right - 6: No Drift Motor Leg Left - 6: No Drift Limb Ataxia - 7: Absent Sensory - 8: Normal Best Language - 9: No Aphasia Dysarthia - 10: Normal Extinction And Inattention - 11: 0 Score Total Score: 0
[2024-08-28 18:40] LABS: Basophils # 0.1 10^3/uL (0.0-0.1); Basophils % 0.8 %; Eosinophils # 0.3 10^3/uL (0.0-0.8); Eosinophils % 3.4 %; Hematocrit 46.4 % (37-53); Lymphocytes # 2.6 10^3/uL (0.8-4.8); Lymphocytes % 35.5 %; Mean Corpuscular HGB Conc 34.5 g/dL (30-55); Mean Corpuscular Hemoglobin 31.7 pg (27-33); Mean Corpuscular Volume 91.9 fl (82-101); Mean Platelet Volume 9.6 fL (7.4-10.4); Monocytes # 0.5 10^3/uL (0.2-0.9); Monocytes % 6.2 %; Neutrophils # 3.98 10^3/uL (1.8-7.7); Neutrophils % 53.7 %; Nucleated Red Blood Cells % 0 %; Platelet Count 339 10^3/cmm (157-399); Red Blood Count 5.05 10^6/uL (3.85-5.65); Red Cell Distribution Width 12.1 % (12.1-15.1); White Blood Count 7.41 10^3/uL (3.29-11.43)
--- NOTE | 2024-08-28 18:46 | ECG_ITS ---
[facility] Test Date: 2024-08-28 Pat Name: Al Galarza Department: Room: Gender: Male [employer]: : 1975 Requested By: Jack Mcclellan Order Number: [id number] Reading MD: IBETH HEALY Measurements Intervals [place] Rate: 82 P: 37 HI: 143 QRS: 43 QRSD: 89 T: 63 QT: 356 QTc: 418 Interpretive Statements SINUS RHYTHM NONSPECIFIC T-WAVE ABNORMALITY Compared to ECG 12/16/2022 21:01:53 No significant changes Electronically Signed On 08-29-2024 21:40:42 CDT by IBETH HEALY [email or web address]
[2024-08-28 18:50] LABS: INR 0.88 (0.8-1.2)
[2024-08-28 18:51] LABS: Partial Thromboplastin Time 27.3 SECONDS (23.9-36.7)
[2024-08-28 18:55] LABS: Alanine Aminotransferase 29 U/L (0-41); Albumin Level 4.5 g/dL (3.5-5.2); Alcohol Level 11 mg/dL (0-10); Alkaline Phosphatase 79 U/L (40-130); Anion Gap 15.8 (5-19); Aspartate Amino Transferase 20 U/L (0-40); Blood Urea Nitrogen 13 mg/dL (6-20); Calcium 9.2 mg/dL (8.5-10.5); Carbon Dioxide 25 mmol/L (22-29); Chloride 105 mmol/L (98-107); Creatinine Clr Calc Pharmacy 84.5424; Globulin 3.2 g/dL (1.3-4.6); Glomerular Filtration Rate 64.4 mL/min (90-130); Glucose 121 mg/dL (65-115); Osmolality Calculated 293 mOsm/kg (285-295); Potassium 4.8 mmol/L (3.5-5.1); Sodium 141 mmol/L (136-145); Total Bilirubin 0.4 mg/dL (0.15-1.2); Total Protein 7.7 g/dL (6.6-8.7)
[2024-08-28 19:35] LABS: Chol HDL Ratio 4.07 mg/dL (1.0-5.00); Cholesterol 167 mg/dL (0-200); HDL Cholesterol 41 mg/dL (60-100); LDL Cholesterol Calculated 82 mg/dL (50-129); Triglycerides 221 mg/dL (0-150); VLDL Cholestrol Calculation 44 mg/dL (0-30)
[2024-08-28] MEDS: aspirin 325 mg Tablet PO (19:48)
[2024-08-28] MEDS: atorvastatin 40 mg Tablet PO (19:48)
[2024-08-28 20:33] LABS: Add Urine Microscopic? NO
[2024-08-28 20:43] LABS: Amphetamines Screen Urine Negative (Negative); Barbiturates Screen Urine Negative (Negative); Benzodiazepines Screen Urine Negative (Negative); Cocaine Screen Urine Negative (Negative); Opiate Screen Urine Negative (Negative); PCP Screen Urine Negative (Negative); THC Screen Urine Negative (Negative)
[2024-08-28 20:44] LABS: Bilirubin Urine Neg (Negative); Blood Urine Neg (Negative); Charge for UA Resulting for Rev; Glucose Urine UA Norm (Normal); Ketones Urine Negative (Negative); Leukocyte Esterase Urine Negative (Negative); Nitrate Urine Negative (Negative); Protein Urine Neg (Negative); Specific Gravity, Urine 1.025 (1.005-1.030); Urine Appearance Clear (CLEAR); Urine Color Yellow (Yellow); Urobilinogen Urine Norm (Negative); pH Urine 5 (5-7)
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
--- NOTE | 2024-08-28 21:34 | CTR_ITS ---
PROCEDURE INFORMATION: Exam: CTA Head With Contrast, Arteriography Exam date and time: 08/28/2024 9:48 PM Age: 49 years old Clinical indication: Speech disturbance; Episode of aphasia lasting approximately five minutes earler this afternoon. ; Additional info: Stroke symptoms, per hospitalist TECHNIQUE: Imaging protocol: Computed tomographic angiography of the head with contrast. Exam focused on the arteries. 3D rendering (Not supervised by radiologist): MIP and/or 3D reconstructed images were created by the technologist. Radiation optimization: All CT scans at this facility use at least one of these dose optimization techniques: automated exposure control; mA and/or kV adjustment per patient size (includes targeted exams where dose is matched to clinical indication); or iterative reconstruction. Contrast material: OMNI 350; Contrast volume: 100 ml; Contrast route: INTRAVENOUS (IV); COMPARISON: CT angio headneck* [id number] 12/16/2022 8:45 PM RADIATION DOSE METRICS: Total DLP (mGy-cm): 510.8 FINDINGS: ANTERIOR CIRCULATION: Right internal carotid artery: Intracranial segment is patent with no significant stenosis. No aneurysm. Right middle cerebral artery: No occlusion or significant stenosis. No aneurysm. Right anterior cerebral artery: No occlusion or significant stenosis. No aneurysm. Left internal carotid artery: Intracranial segment is patent with no significant stenosis. No aneurysm. Left middle cerebral artery: No occlusion or significant stenosis. No aneurysm. Left anterior cerebral artery: No occlusion or significant stenosis. No aneurysm. POSTERIOR CIRCULATION: Right vertebral artery: No occlusion or significant stenosis. No aneurysm. Left vertebral artery: No occlusion or significant stenosis. No aneurysm. Basilar artery: No occlusion or significant stenosis. No aneurysm. Right posterior cerebral artery: No occlusion or significant stenosis. No aneurysm. Left posterior cerebral artery: No occlusion or significant stenosis. No aneurysm. Brain: No definite mass, mass effect, or midline shift. Cerebral ventricles: No ventriculomegaly. Bones/joints: Unremarkable. No acute fracture. Soft tissues: Unremarkable. PROCEDURE INFORMATION: Exam: CTA Neck With Contrast Exam date and time: 08/28/2024 9:48 PM Age: 49 years old Clinical indication: Speech disturbance; Episode of aphasia lasting approximately five minutes earler this afternoon. ; Additional info: Stroke symptoms, per hospitalist TECHNIQUE: Imaging protocol: Computed tomographic angiography of the neck with contrast. Exam focused on the cervical segments of the vasculature. 3D rendering (Not supervised by radiologist): MIP and/or 3D reconstructed images were created by the technologist. Radiation optimization: All CT scans at this facility use at least one of these dose optimization techniques: automated exposure control; mA and/or kV adjustment per patient size (includes targeted exams where dose is matched to clinical indication); or iterative reconstruction. Contrast material: OMNI 350; Contrast volume: 100 ml; Contrast route: INTRAVENOUS (IV); COMPARISON: CT angio headneck* [id number] 12/16/2022 8:45 PM RADIATION DOSE METRICS: Total DLP (mGy-cm): 510.8 FINDINGS: Right common carotid artery: No stenosis. No dissection or occlusion. Right internal carotid artery: No stenosis of the extracranial segment. No dissection or occlusion. Right external carotid artery: No occlusion or stenosis of the origin. Left common carotid artery: No stenosis. No dissection or occlusion. Left internal carotid artery: No stenosis of the extracranial segment. No dissection or occlusion. Left external carotid artery: No occlusion or stenosis of the origin. Right vertebral artery: No stenosis. No dissection or occlusion. Left vertebral artery: No stenosis. No dissection or occlusion. Soft tissues: Normal. No significant soft tissue swelling. Bones/joints: No acute fracture. CT/CT angio headne* [id number] IMPRESSION: No large vessel stenosis or occlusion. IMPRESSION: No stenosis or occlusion. REFERENCES: NASCET CRITERIA. The degree of stenosis in the cervical segment of the internal carotid artery is based on NASCET criteria. Normal is no stenosis. Mild is less than 50% stenosis. Moderate is 50-69% stenosis. Severe is 70% to 99% stenosis. Total occlusion is no detectable patent lumen.
[2024-08-28] MEDS: iohexol 350 mg/mL 500 mL Btl (per mL) IV (21:48)
[2024-08-28] MEDS: sodium chloride 0.9% 1,000 ML 125 ML IV (23:56)
[2024-08-29] VITALS (8 sets, daily range): BP systolic 118–146; BP diastolic 70–92; PULSE 68–81; RESP 15–18; TEMP 36.5–36.8; O2SAT 96–98
--- NOTE | 2024-08-29 00:14 | USCV_ITS ---
Al Galarza Age: 49 Gender: M : 1975 Exam Date: 08/29/2024 08:53 Ordering Phys: Swetha George MD Technologist: Salvador Glass Exam Location: [facility] – [place] Indication: TIA BP: 133 / 85 HR: 71 Rhythm: Sinus Technical Quality: Adequate MEASUREMENTS (Male / Female) Normal Values 2D ECHO LV Diastolic Diameter PLAX 3.3 cm 4.2 - 5.9 / 3.9 - 5.3 cm IVS Diastolic Thickness 1.4 cm 0.6 - 1.0 / 0.6 - 0.9 cm IVS Systolic Thickness 1.7 cm LVPW Diastolic Thickness 1.8 cm 0.6 - 1.0 / 0.6 - 0.9 cm LVPW Systolic Thickness 2.0 cm LVOT Diameter 2.1 cm LV Ejection Fraction 2D Teich 57.6 % LV Ejection Fraction MOD 4C 56.1 % LV Ejection Fraction MOD 2C 61.7 % LV Ejection Fraction 2C AL 63.6 % LA Diameter 3.1 cm RA Systolic Volume 4C AL 34.6 ml RA Systolic Volume 4C MOD 35.5 ml LA Sys Volume AL 34.5 cm cubed LA Sys Volume Index AL 16.0 cm cubed/m squared Aorta at Sinotubular Diameter 2.6 cm IVC Diameter 1.6 cm M-MODE LA Ao Ratio MM 1.1 AV Cusp Separation MM 1.7 cm DOPPLER AV Peak Velocity 121.0 cm/s LVOT Peak Velocity 77.0 cm/s AV Area Cont Eq vti 2.6 cm squared AV Area Cont Eq pk 2.1 cm squared MV Peak Velocity 93.0 cm/s MV Area PHT 5.6 cm squared Mitral E to A Ratio 0.8 TV Peak Velocity 282.3 cm/s TR Peak Velocity 363.0 cm/s TR Peak Gradient 52.7 mmHg TR Mean Velocity 298.0 cm/s TR Mean Gradient 36.9 mmHg TR Velocity Time Integral 92.3 cm PV Peak Velocity 96.0 cm/s RV Ejection Time 0.3 s FINDINGS Left Ventricle Normal left ventricular size, systolic function and wall thickness, with no regional wall motion abnormalities. Left ventricular ejection fraction is estimated at 60 %. Grade I/IV diastolic dysfunction (abnormal relaxation filling pattern), normal to mildly elevated filling pressures. Right Ventricle The right ventricle is normal in size and function. Right Atrium The right atrium is normal in size. Left Atrium The left atrium is normal in size. Mitral Valve Moderately thickened mitral valve. Mild mitral annular calcification. No mitral valve stenosis. Mild mitral valve regurgitation. Aortic Valve Moderate aortic valve calcification. Mild aortic valve calcification. No aortic valve stenosis. Trace aortic valve regurgitation. Tricuspid Valve Mild tricuspid valve regurgitation. Pulmonic Valve Structurally normal pulmonic valve without significant stenosis. There is no pulmonic regurgitation. Pericardium Normal pericardium without effusion. Aorta Normal ascending aorta dimension. IVC The inferior vena cava appears normal. CONCLUSIONS Normal left ventricular size, systolic function and wall thickness, with no regional wall motion abnormalities. Left ventricular ejection fraction is estimated at 60 %. Grade I/IV diastolic dysfunction (abnormal relaxation filling pattern), normal to mildly elevated filling pressures. Moderately thickened mitral valve. Mild mitral annular calcification. No mitral valve stenosis. Mild mitral valve regurgitation. Mild tricuspid valve regurgitation. There is no pericardial effusion. Right atrial pressure is around 5 mm of mercury. Angelia Vázquez MD (Electronically Signed) Final Date: 29 August 2024 15:51 S
--- NOTE | 2024-08-29 00:43 | MRR_ITS ---
PROCEDURE INFORMATION: Exam: MR Head Without and With Contrast Exam date and time: 08/29/2024 8:09 AM Age: 49 years old Clinical indication: Speech disturbance; Transient episode of aphasia lasting 3-5 minutes; Additional info: Transient ischemic attack, multiple sclerosis also in differential. TECHNIQUE: Imaging protocol: Magnetic resonance imaging of the head without and with contrast. Contrast material: MULTIHANCE; Contrast volume: 20 ml; Contrast route: INTRAVENOUS (IV); COMPARISON: CT angio headneck* [id number] 08/28/2024 9:48 PM FINDINGS: Brain: There is small cortical infarct in the left parietal lobe at the watershed of the left middle cerebral artery. There is no mass effect, midline shift, hemorrhage or extra-axial collection is identified. Small cortical signal abnormality in the lateral frontal gyri, right greater than left may be due to prior chronic ischemia. Cerebral ventricles: Normal. No ventriculomegaly. Bones: Unremarkable. Paranasal sinuses: Normal as visualized. No acute sinusitis. Mastoid air cells: Normal as visualized. No mastoid effusion. Orbital cavities: Unremarkable. Soft tissues: Unremarkable. MR/MR head wo/w con [id number] IMPRESSION: Small acute cortical infarct in the left parietal lobe.
[2024-08-29 00:45] LABS: Creatine Phosphokinase 215 U/L (39-308)
[2024-08-29 00:50] LABS: Erythrocyte Sedimentation Rate 1 mm/hr (0-10)
[2024-08-29 06:07] LABS: Vitamin B12 240 pg/mL (232-1245)
[2024-08-29] MEDS: gadobenate dimeglumine 20 mL vial IV (08:22)
[2024-08-29] MEDS: sodium chloride 0.9% 1,000 ML 125 ML IV (09:43)
[2024-08-29] MEDS: pantoprazole DR 40 mg Tablet 20 MG PO (09:43)
[2024-08-29] MEDS: aspirin 325 mg Tablet PO (09:43)
--- NOTE | 2024-08-29 13:47 | P.PN_ITS ---
Subjective 2 Subjective: Admitted overnight. Seen with spouse at bedside. Patient is awake and alert. Denies any nausea, vomiting, headache. As per the family patient's symptoms have resolved. Vitals/I&O/Wt Last Vital Signs Temp 98 F 08/29/24 12:20 Pulse 81 08/29/24 12:20 Resp 18 08/29/24 12:20 BP 137/92 08/29/24 12:20 Pulse Ox 96 08/29/24 12:20 O2 Del Method Room Air 08/29/24 12:20 08/28/24 08/29/24 08/29/24 22:59 06:59 14:59 Intake Total 0 / 0 1480 / 1480 Balance 0 / 0 1480 / 1480 Weight last 48 hrs Weight 92.714 kg Weight 93.712 kg Weight 91.172 kg Physical Exam 2 Narrative: Constitutional: GENERAL APPEARANCE: cooperative, comfortable; not combative, not disheveled, not ill appearing and not frail appearing HENT: HEAD & SCALP: normocephalic and atraumatic; NOSE: external nose not normal EXTERNAL EAR: no external ears normal MOUTH: Normal oral and palatal mucosa present THROAT: posterior oropharynx normal Eye: PERRL, EOMI, normal conjunctiva b/l Neck: normal visual inspection, trachea midline, No anterior neck swelling, No tracheal deviation, No tracheostomy present, no submandibular swelling, Thyroid normal , cervical ROM normal Lymph: no cervical, supraclavicular LAD Resp: no use of accessory muscles, CTAB, no w/r/r Cardio: RRR, no m/r/g, or clicks. 2+ radial and DP pulses. GI: normoactive bowel sounds, non-tender, non-distended, no guarding, no rigidity, no rebound tenderness, no hepatosplenomegaly. : No Salazar in place draining urine, Back/Pelvis: Deferred Extremity: No clubbing, No cyanosis and No edema Neuro: AAO x 3. CN normal except as noted. Normal gait present. 5/5 motor strength present throughout. Normal motor muscle tone present throughout. No tremor noted. No motor abnormalities present. No motor fasciculations present Psych: APPEARANCE: Yes grossly normal ATTITUDE: Yes calm and Yes engaged ACTIVITY/MOTOR BEHAVIOR: Yes appropriate eye contact SPEECH: Yes normal speech MOOD & AFFECT: Yes euthymic mood THOUGHT PROCESS: Normal thought process present THOUGHT CONTENT: Yes Normal thought content present ATTENTION/CONCENTRATION: Yes attention grossly intact MEMORY/COGNITION: Yes memory grossly intact Data 08/28/24 18:30 08/28/24 18:30 A&P Assessment and plan (1) CVA (cerebral vascular accident): (2) Elevated blood pressure reading: Plan Al Galarza is a 49 year old male w/ a hx of a posterior circulation TIA in 11/2022, HLD, & heartburn who presents to the ED on 08/28/2024 w/ complaints of expressive aphasia. Stroke: Confirmed on MRI of the brain. Concerning for a small acute cortical infarct in left parietal lobe. Appreciate CT, CTA head and neck results. Follow-up echocardiogram. Check A1c, lipid panel. Permissible hypertension. Continue with aspirin 81 mg daily. Add atorvastatin 20 mg nightly. Telemonitoring. PT/OT/speech evaluation. Elevated blood pressure: Target blood pressure less than 140/90 mmHg in 24 hours. Counseled patient to monitor his blood pressure daily at home maintain a blood pressure diary and follow-up with his PCP within 2 weeks for adjustment of antihypertensives as needed. Full code Cardiac diet Heparin 5000 every 12 hourly for DVT prophylaxis Protonix for PUD prophylaxis. PDMP PDMP Reviewed: Not Reviewed Attestations 2 Medical Necessity Statement*: Requires further hospitalization for management and further workup for a new left parietal lobe stroke Diagnoses CVA (cerebral vascular accident) I63.9 Elevated blood pressure reading R03.0
[2024-08-29] MEDS: atorvastatin 40 mg Tablet 20 MG PO (20:02)
[2024-08-29] MEDS: enoxaparin 40 mg/0.4 mL Syringe SUBCUT (20:02)
[2024-08-30 04:00] VITALS: BP 127/79; PULSE 78; RESP 15; TEMP 36.7; O2SAT 97
[2024-08-30 05:05] VITALS: PULSE 57
[2024-08-30 05:23] LABS: Basophils # 0.1 10^3/uL (0.0-0.1); Basophils % 0.8 %; Eosinophils # 0.2 10^3/uL (0.0-0.8); Eosinophils % 2.6 %; Hematocrit 42.9 % (37-53); Lymphocytes # 2.2 10^3/uL (0.8-4.8); Lymphocytes % 27.8 %; Mean Corpuscular HGB Conc 34.3 g/dL (30-55); Mean Corpuscular Hemoglobin 32.2 pg (27-33); Mean Corpuscular Volume 94.1 fl (82-101); Mean Platelet Volume 9.4 fL (7.4-10.4); Monocytes # 0.5 10^3/uL (0.2-0.9); Monocytes % 6.5 %; Neutrophils # 4.95 10^3/uL (1.8-7.7); Neutrophils % 61.9 %; Nucleated Red Blood Cells % 0 %; Platelet Count 266 10^3/cmm (157-399); Red Blood Count 4.56 10^6/uL (3.85-5.65); Red Cell Distribution Width 12.1 % (12.1-15.1); White Blood Count 7.99 10^3/uL (3.29-11.43)
[2024-08-30 05:49] LABS: Alanine Aminotransferase 19 U/L (0-41); Alkaline Phosphatase 59 U/L (40-130); Anion Gap 13.1 (5-19); Aspartate Amino Transferase 15 U/L (0-40); Blood Urea Nitrogen 10 mg/dL (6-20); Calcium 8.9 mg/dL (8.5-10.5); Carbon Dioxide 26 mmol/L (22-29); Chloride 104 mmol/L (98-107); Creatinine Clr Calc Pharmacy 92.9161; Globulin 2.9 g/dL (1.3-4.6); Glomerular Filtration Rate 71.1 mL/min (90-130); Glucose 92 mg/dL (65-115); Osmolality Calculated 287 mOsm/kg (285-295); Phosphorus 3.6 mg/dL (2.5-4.5); Potassium 4.1 mmol/L (3.5-5.1); Sodium 139 mmol/L (136-145); Thyroid Stimulating Hormone 0.81 uIU/mL (0.27-4.20); Total Bilirubin 0.7 mg/dL (0.15-1.2); Total Protein 6.9 g/dL (6.6-8.7)
[2024-08-30 06:03] LABS: Estmated Average Glucose 85; Hemoglobin A1C 4.6 % (4.0-6.0)
[2024-08-30 07:40] VITALS: BP 128/89; PULSE 77; RESP 16; TEMP 36.6; O2SAT 96
[2024-08-30] MEDS: aspirin 81 mg EC Tablet PO (08:11)
--- NOTE | 2024-08-30 08:58 | PC.CHAP ---
Pastoral Care Encounter/Spiritual Assessment Type of Contact [] Declined shark biologist visit [] Patient/Family/Request visit [] Outpatient visit [] Follow-up visit [] Physician referral [] Code/Alert [x] Routine visit [] Staff referral [] Actively dying [] Patient sleeping [] Family support [] [] Out of room [] Palliative care [] [] Receiving care in room [] Pre-surgical visit [] Trauma [] Long length of stay [] ICU visit [] Other: Relational/Emotional Strength [] Patient feels connected with others/family/visitors/staff [] Distress [] Loneliness/isolation [] Abandonment Spirituality of Patient [x] Person of Edwina [] Attends Cheondoism of their [place] [x] Believes in Prayer [] Reads Bible or Temple materials [] There are Spiritual issues to be addressed Wholesale Loan [employer]or Interventions [x] Prayer [x] Active listening [] Non-anxious presence [] Spiritual/emotional support [] Crisis/trauma care [] Spiritual counseling [] Bereavement support [] Provided bereavement packet [x] Provided Bible/devotional materials [] Provided toy/stuffed animal, coloring book to patient or family member [] Provided Communion [] Anointing/[place] [] Salvation [x] Completed spiritual assessment [] Other: Impact on Illness or Injury [] Angry [] Fearful [] Anxious [] Often cries [] Exhaustion [] Unable to work [] Unable to attend synagogue [] Unable to walk/stand [] Unable to read [] Unable to drive [] Unable to eat/drink [] Unable to sleep [] Unable to be with family [] Patient intubated [] Other: Summary Time spent with patient 10 min
--- NOTE | 2024-08-30 09:46 | P.DS_ITS ---
Discharge Providers Date of Admission: 08/28/24 21:36 Date of Discharge: August 30, 2024 Attending Provider at Admission: Swetha George MD Attending Provider at Discharge: Jose Daniel Cobos Diagnoses at Discharge Discharge Diagnosis (1) CVA (cerebral vascular accident): Status: Acute (2) Elevated blood pressure reading: Status: Acute Reason for Visit Reason for Visit: could not form words for 5 min Hospital Course Hospital Course Pleasant 49-year-old gentleman was hospitalized after presenting with concerns for difficulty communicating and dysarthria which lasted ambulatory brief time resolving spontaneously, found to have left parietal lobe CVA on MRI. He was started on aspirin, statin. He occasionally used to take NSAIDs in the past, was encouraged to avoid NSAIDs due to risk of cardiovascular disease including stroke. Neck vessel imaging without significant stenosis. A1c unremarkable. Without atrial fibrillation in the hospital. Echocardiogram with mild valvular abnormality, without major concerns. Blood pressure elevated on presentation, possible episodic hypertension, he was instructed to continue to monitor blood pressure 2-3 times daily, started on as needed amlodipine in case blood pressure higher than 140/90. Instructed on continued heart healthy diet, exercise, as well as follow-up with primary provider and assessment by neurology in office. She otherwise did well with physical therapy, speech therapy, appeared to return to baseline. Physical Exam Const: COMMON NORMALS: patient oriented x3 and alert GENERAL APPEARANCE: cooperative ORIENTATION/CONSCIOUSNESS: Yes awake HENMT: COMMON NORMALS: oropharynx normal Neck/C-Spine: COMMON NORMALS: no JVD Resp: COMMON NORMALS: normal respiratory effort and clear to auscultation bilaterally AUSCULTATION: clear to auscultation bilaterally Cardio: COMMON NORMALS: no JVD, regular rhythm, S1 normal heart sound present, S2 normal heart sound present and No murmurs present (Cardio) RHYTHM: regular rhythm HEART SOUNDS: S1 normal heart sound present and S2 normal heart sound present GI: COMMON NORMALS: Normal to inspection, nondistended, normoactive bowel sounds present, Soft to palpation and non-tender PALPATION: Yes Soft to palpation Extremity: COMMON NORMALS: no joint enlargement and no pedal edema Neuro: COMMON NORMALS: patient oriented x3 and moves all extremities SENSORIUM/ORIENTATION: Yes alert Skin: COMMON NORMALS: no rashes or lesions noted GENERAL SKIN EXAM: no rashes or lesions noted Discharge Data Studies Completed and Pending Completed Studies During Hospitalization Category Date Time Status CT head thrombolytic [id number] Stat Cat Scan 08/28/24 18:28 Completed CTA head neck [CT angio headneck* [id number]] Stat Cat Scan 08/28/24 21:34 Completed MR head wo/w con [id number] Routine MRI 08/29/24 00:43 Completed CV. echo complete* [id number] Routine Ultrasound 08/29/24 00:14 Completed Radiology Impressions Head CT 08/28/24 18:28 IMPRESSION: Negative for intracranial hemorrhage. No identified acute infarct. ASSESSMENT: ASPECTS ([place] Stroke Program Early CT Score) is 10. ADDENDUM: 08/28/[address] Castaneda at 7:05 p.m. on 08/28/2024 Head/Neck CTA 08/28/24 21:34 IMPRESSION: No large vessel stenosis or occlusion. IMPRESSION: No stenosis or occlusion. REFERENCES: NASCET CRITERIA. The degree of stenosis in the cervical segment of the internal carotid artery is based on NASCET criteria. Normal is no stenosis. Mild is less than 50% stenosis. Moderate is 50-69% stenosis. Severe is 70% to 99% stenosis. Total occlusion is no detectable patent lumen. Head MRI 08/29/24 00:43 IMPRESSION: Small acute cortical infarct in the left parietal lobe. ADDENDUM: 08/29/24 0916 THIS REPORT CONTAINS FINDINGS THAT MAY BE CRITICAL TO PATIENT CARE. The findings were verbally communicated via telephone conference with Dr Weathers at 9:14 AM CDT on 08/29/2024. The findings were acknowledged and understood. Laboratory Results WBC 7.99 10^3/uL (3.29-11.43) 08/30/24 05:03 RBC 4.56 10^6/uL (3.85-5.65) 08/30/24 05:03 Hgb 14.70 g/dL (11.27-16.99) 08/30/24 05:03 Hct 42.9 % (37-53) 08/30/24 05:03 MCV 94.1 fl (82-101) 08/30/24 05:03 MCH 32.2 pg (27-33) 08/30/24 05:03 MCHC 34.3 g/dL (30-55) 08/30/24 05:03 RDW 12.1 % (12.1-15.1) 08/30/24 05:03 Plt Count 266 10^3/cmm (157-399) 08/30/24 05:03 MPV 9.4 fL (7.4-10.4) 08/30/24 05:03 Neut % (Auto) 61.9 % 08/30/24 05:03 Lymph % (Auto) 27.8 % 08/30/24 05:03 [place] % (Auto) 6.5 % 08/30/24 05:03 Eos % (Auto) 2.6 % 08/30/24 05:03 Baso % (Auto) 0.8 % 08/30/24 05:03 Neut # (Auto) 4.95 10^3/uL (1.8-7.7) 08/30/24 05:03 Lymph # (Auto) 2.2 10^3/uL (0.8-4.8) 08/30/24 05:03 [place] # (Auto) 0.5 10^3/uL (0.2-0.9) 08/30/24 05:03 Eos # (Auto) 0.2 10^3/uL (0.0-0.8) 08/30/24 05:03 Baso # (Auto) 0.1 10^3/uL (0.0-0.1) 08/30/24 05:03 Nucleated RBC % (auto) 0 % 08/30/24 05:03 Nucleated RBCs # 0.0 /100WBC 08/30/24 05:03 ESR 1 mm/hr (0-10) 08/28/24 18:30 PT 12.50 SECONDS (12.1-14.9) 08/28/24 18:30 INR 0.88 (0.8-1.2) 08/28/24 18:30 APTT 27.3 SECONDS (23.9-36.7) 08/28/24 18:30 Sodium 139 mmol/L (136-145) 08/30/24 05:03 Potassium 4.1 mmol/L (3.5-5.1) 08/30/24 05:03 Chloride 104 mmol/L (98-107) 08/30/24 05:03 Carbon Dioxide 26 mmol/L (22-29) 08/30/24 05:03 Anion Gap 13.1 (5-19) 08/30/24 05:03 BUN 10 mg/dL (6-20) 08/30/24 05:03 Creatinine 1.1 mg/dL (0.7-1.2) 08/30/24 05:03 GFR Calculation 71.1 mL/min (90-130) L 08/30/24 05:03 Glucose 92 mg/dL (65-115) 08/30/24 05:03 Estimat Average Glucose 85 08/30/24 05:03 Hemoglobin A1c 4.6 % (4.0-6.0) 08/30/24 05:03 Calculated Osmolality 287 mOsm/kg (285-295) 08/30/24 05:03 Calcium 8.9 mg/dL (8.5-10.5) 08/30/24 05:03 Phosphorus 3.6 mg/dL (2.5-4.5) 08/30/24 05:03 Magnesium 2.0 mg/dL (1.7-2.3) 08/30/24 05:03 Total Bilirubin 0.7 mg/dL (0.15-1.2) 08/30/24 05:03 AST 15 U/L (0-40) 08/30/24 05:03 ALT 19 U/L (0-41) 08/30/24 05:03 Alkaline Phosphatase 59 U/L (40-130) 08/30/24 05:03 Creatine Kinase 215 U/L (39-308) 08/28/24 18:30 C-Reactive Protein 3.0 mg/L (0.0-4.9) 08/28/24 18:30 Total Protein 6.9 g/dL (6.6-8.7) 08/30/24 05:03 Albumin 4.0 g/dL (3.5-5.2) 08/30/24 05:03 Globulin 2.9 g/dL (1.3-4.6) 08/30/24 05:03 Triglycerides 221 mg/dL (0-150) H 08/28/24 18:30 Cholesterol 167 mg/dL (0-200) 08/28/24 18:30 LDL Cholesterol, Calc 82 mg/dL (50-129) 08/28/24 18:30 Total VLDL Cholesterol 44 mg/dL (0-30) H 08/28/24 18:30 HDL Cholesterol 41 mg/dL (60-100) L 08/28/24 18:30 Cholesterol/HDL Ratio 4.07 mg/dL (1.0-5.00) 08/28/24 18:30 Vitamin B12 240 pg/mL (232-1245) 08/29/24 04:39 TSH 0.81 uIU/mL (0.27-4.20) 08/30/24 05:03 Urine Color Yellow (Yellow) 08/28/24 20:29 Urine Appearance Clear (CLEAR) 08/28/24 20: Urine pH 5 (5-7) 08/28/24 20: Ur Specific [place] 1.025 (1.005-1.030) 08/28/24 20: Urine Protein Neg (Negative) 08/28/24 20:29 Urine Glucose (UA) Norm (Normal) 08/28/24 20:29 Urine Ketones Negative (Negative) 08/28/24 20:29 Urine Blood Neg (Negative) 08/28/24 20: Urine Nitrate Negative (Negative) 08/28/24 20:29 Urine Bilirubin Neg (Negative) 08/28/24 20:29 Urine Urobilinogen Norm mg/dL (Negative) 08/28/24 20:29 Ur Leukocyte Esterase Negative (Negative) 08/28/24 20: Amorphous Sediment Not Reportable 08/28/24 20:29 Urine Opiates Screen Negative ng/mL (Negative) 08/28/24 20:29 Ur Barbiturates Screen Negative ng/mL (Negative) 08/28/24 20:29 Ur Phencyclidine Scrn Negative ng/mL (Negative) 08/28/24 20:29 Ur Amphetamines Screen Negative ng/mL (Negative) 08/28/24 20:29 U Benzodiazepines Scrn Negative ng/mL (Negative) 08/28/24 20:29 Urine Cocaine Screen Negative ng/mL (Negative) 08/28/24 20:29 U Marijuana (THC) Screen Negative ng/mL (Negative) 08/28/24 20:29 Ethyl Alcohol 11 mg/dL (0-10) H 08/28/24 18:30 Vitals Last Vital Signs Temp 97.9 F 08/30/24 07:40 Pulse 77 08/30/24 07:40 Resp 16 08/30/24 07:40 BP 128/89 08/30/24 07:40 Pulse Ox 96 08/30/24 07:40 O2 Del Method Room Air 08/30/24 07:40 Discharge Plan Discharge Patient Disposition: Home Condition: Stable Prescriptions: New atorvastatin 40 mg Tablet 40 mg PO BEDTIME Qty: 90 0RF aspirin 81 mg Tablet,Delayed Release (Dr/Ec) 81 mg PO DAILY Qty: 90 0RF amlodipine 5 mg tablet 5 mg PO DAILY PRN (Reason: hypertension) Qty: 30 0RF Continued omeprazole 20 mg Capsule,Delayed Release(Dr/Ec) 20 mg PO DAILY PRN (Reason: Heartburn) Rx Instructions: unknown dose Discontinued naproxen 500 mg tablet 500 mg PO BID PRN (Reason: pain) Qty: 60 1RF Rx Instructions: unknown dose Discharge Orders: Discharge Order (Routine); Ordered 08/30/24 Ordered By: Jose Daniel Cobos Referrals: Artem Hu MD [Physician] - 10/19/24 11:00 am (CVA ) Suyapa Alejandra DO [Physician] - 09/09/24 8:00 am Discharge Diet: Cardiac Patient Instructions: Aspirin (By mouth), Amlodipine (By mouth), Atorvastatin (By mouth), Transient Ischemic Attack (DC), Stroke (DC), Opioid Safety, Stroke Stoplight Activity Restrictions/Additional Instructions: Continue monitoring blood pressures 2-3 times a day. Target blood pressure 120/80. Limit sodium intake. Continue with heart healthy diet. Include at least 150 min of moderate exercise a week. Avoid dehydration. Continue aspirin and cholesterol medications and watch for adverse effects as discussed. In case of blood pressure rising to 140/90 or above, take amlodipine. Follow up with neurology for further assessment and reccomendations. Seek medical attention incase of worsening or new concerning symptoms. Discharge Attestations Time Spent in Discharge Care*: greater than 30 min Quality Metrics Clinical Quality Measures [ Cerebrovascular Accident { Contraindication to Antithrombotic: None; antithrombotic prescribed; Contraindication to Anticoagulation: Overlap treatment not indicated; Contraindication to Statin: None; Statin prescribed;}] Coding Level of Care Code 62471 Total time (in minutes) for Discharge: 45 Diagnoses CVA (cerebral vascular accident) I63.9 Elevated blood pressure reading R03.0
--- NOTE | 2024-08-30 10:04 | PC.NURSE ---
D/C pending speech eval.
--- NOTE | 2024-08-30 10:13 | PC.NURSE ---
measurement coordinator rounds at 0945- gave patient and stroke education book, pt states symptoms have resolved and looking forward to home hopefully today, answered questions and gave contact info.
[2024-08-30 12:00] VITALS: BP 132/88; PULSE 87; RESP 16; TEMP 36.7; O2SAT 95
[2024-08-30 12:21] VITALS: BP 132/88; PULSE 80; O2SAT 95
--- NOTE | 2024-08-30 13:13 | PC.OT ---
OT EVALUATION ORDERS RECEIVED. PATIENT D/C BEFORE EVALUATION COULD BE COMPLETED.
[2024-08-30 13:42] LABS: Glucose Point of Care 110 mg/dL (70-110)
== END 2024-08-30 12:23 | disposition home or self-care (01) ==
LOC: ER 18:30 → MEDSURG 21:43
PROVIDERS: Admitting Provider Internal Medicine; Emergency Provider Emergency Medicine; Visit Provider Internal Medicine
DX: I63.9 Cerebral infarction, unspecified (principal); R29.700 NIHSS score 0; R03.0 Elevated blood-pressure reading, without diagnosis of hypertension; Z86.73 Personal history of transient ischemic attack (TIA), and cerebral infarction without residual deficits; E78.5 Hyperlipidemia, unspecified; R12 Heartburn
CPT/HCPCS: 36415; 36416; 70450; 70496; 70498; 70553; 80053; 80061; 80306; 80307; 81003; 82550; 82607; 82962; 83036; 83735; 84100; 84443; 85025; 85610; 85651; 85730; 86140; 92523; 93005; 93306; 96361; 96372; 96374; 97161; 99285; G0378; J1650; J7030; J9999

== ENCOUNTER → 2025-05-09 08:08 | Outpatient (BNVA) | payer BC, SELFPAY | PROVIDERS: PCP Family Medicine; Visit Provider Podiatrist Foot & Ankle Surgery | DX: M79.671 Pain in right foot (principal); M79.672 Pain in left foot | CPT/HCPCS: 73630 ==